=== PATIENT | male | born 1945 | race Caucasian/White ===

== ENCOUNTER 2016-09-08 19:14 | Emergency (ER) | payer MEDICARE ==
[2016-09-08] MEDS ORDERED: DIPHTH,PERTUSS(ACELL),TET VAC 0.5 ML VIAL IM V ONE (20:25)
[2016-09-08] MEDS ORDERED: AMOX 875 MG/CLAV 125 MG 1 EACH TABLET ONE (20:25)
== END 2016-09-08 21:00 | disposition home or self-care (01) ==
LOC: ED 19:14
DX: S61.051A Open bite of right thumb without damage to nail, initial encounter (principal); L08.9 Local infection of the skin and subcutaneous tissue, unspecified; Z23 Encounter for immunization; W55.01XA Bitten by cat, initial encounter; Y92.9 Unspecified place or not applicable
CPT/HCPCS: 90715; 87040; 90471; 99283 ×2; 36415; A9270

== ENCOUNTER 2016-09-10 11:19 | Emergency (ER) | payer MEDICARE | END 2016-09-10 13:19 | disposition home or self-care (01) | LOC: ED 11:19 | DX: S61.451D Open bite of right hand, subsequent encounter (principal); L08.9 Local infection of the skin and subcutaneous tissue, unspecified; E11.9 Type 2 diabetes mellitus without complications; Z79.4 Long term (current) use of insulin; W55.01XD Bitten by cat, subsequent encounter ==

== ENCOUNTER 2016-09-13 10:51 | Inpatient (IN) | payer MEDICARE ==
[2016-09-13 13:23] LABS: ABSOLUTE NEUTROPHIL COUNT 6.6 K/mm3 (1.8-7.7); BASO # 0.1 K/mm3 (0.0-0.2); BASO % 0.9 % (0.2-1.0); EOS # 0.4 (0.0-0.5); EOS % 4.3 % (0.9-2.9); HEMATOCRIT 36.9 % (32.0-52.0); IMM NEUT # 0.1 K/mm3 (0-0.2); IMM NEUT% 1.1 % (0-1); LYMPH % 20.1 % (15-45); MEAN CORPUSCULAR HGB CONC 32.5 g/dl (33.0-37.0); MEAN PLATELET VOLUME 10.4 fl (7.4-10.4); MONO # 0.6 (0.0-0.8); MONO % 5.7 % (4-12); NEUT % 67.9 % (43-75); PLATELET COUNT 273 K/mm3 (130-400); RED CELL DISTRIBUTION WIDTH 13.7 % (11.5-14.5)
[2016-09-13 13:41] LABS: CALCIUM 8.9 mg/dL (8.6-10.3)
[2016-09-13] MEDS ORDERED: CITRIC ACID/SODIUM CITRATE 15 ML UDCUP PO ONE (14:08)
--- NOTE | 2016-09-13 14:23 | RAD ---
HAND-RIGHT 3 VIEWS COMPARISON: None HISTORY: Cat bite at the base of thumb 9 days ago. Infection. FINDINGS: Views: Right hand PA, oblique, lateral Bones: Normal mineralization. Benign radiolucency in the scaphoid and the lunate. No fracture. Joints: Marginal osteophytes and joint narrowing at the first metacarpophalangeal joint and the interphalangeal joints of the thumb and fingers. Marginal and intra-articular erosions. Soft tissues: Swelling of the thenar eminence. IMPRESSION: 1. 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 No definite evidence of septic arthritis or osteomyelitis. There is adjacent soft tissue swelling of the thenar eminence. 2. 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
[2016-09-13] MEDS ORDERED: LIDOCAINE 1% (PRES FREE) 30 ML VIAL ONE (14:26)
--- NOTE | 2016-09-13 14:34 | HP ---
CAROLA LORENZCHADD [id number] DATE OF : 1945 DATE OF SERVICE: 09/13/2016 CHIEF COMPLAINT: Left hand infection. HISTORY OF PRESENT ILLNESS: This 71-year-old diabetic male who sustained a cat bite to his left hand 5 days ago. He was initially seen in the emergency department where the hand was inspected and no formal incision and drainage was performed. He was started on antibiotics. He returns to the emergency department today with complaints of increasing pain, and erythema in the hand. This is about his right thumb. He says the antibiotics have not helped him. He has been changing the dressings on this, but he continues to drain and get more and more painful. He has no previous injury at this site. He denies any fevers, or chills. He has no other extremity complaints. PAST MEDICAL AND SURGICAL HISTORY: Significant for diabetes. Other conditions as listed in the emergency department report. No surgeries on this hand previously. He is right hand dominant. SOCIAL HISTORY: Lives locally. REVIEW OF SYSTEMS: Negative for any constitutional, cardiovascular, or respiratory complaints. PHYSICAL EXAMINATION: GENERAL: Well-developed, well-nourished male in no acute distress. HEENT: Patient is normocephalic, atraumatic. Extraocular movements are intact. NECK: Soft, and supple. LUNGS: Inflating equally and he has nonlabored breathing. CARDIOVASCULAR: He has well perfused extremities, and intact peripheral pulses. ABDOMEN: Soft, nontender, and nondistended. FOCUSED MUSCULOSKELETAL EXAM: He has resting sensation of the shoulders, elbows, and wrists. His right hand shows significant erythema around the thenar space both dorsally, and palmarly. He has a small incision on the back of his thumb that the emergency department doctors performed to try and irrigate and debride this abscess. He has normal motion in all digits without significant exacerbation with flexor and extensor of the digits. His thumb and index finger are both warm and well perfused with intact sensation. Erythema event is up to about the level of the wrist, but the area of fluctuance appears to be primarily in the thenar web space. DIAGNOSTIC IMAGING: X-rays show no fracture, or dislocation. He has some degenerative changes around his thumb carpometacarpal joint. ASSESSMENT: A 71-year-old gentleman with right hand infection that has been recalcitrant to by mouth antibiotic use, and resulted from the cat bite. PLAN: Incision and drainage in the operating room, and then admission to the floor for ongoing IV antibiotics. We will get cultures in the operating room although he has already been on antibiotics and so the yield from this culture is diminished. I will see what we can get. We will get him admitted to the floor, IV antibiotics, elevation, wound change, and then have the Hospitalist consult to manage medical issues and potentially repeat incision and drainage in a couple of days. JOB #: [id number] SAMANTHA/rito
[2016-09-13] MEDS ORDERED: NALOXONE HCL 0.4 MG/ML VIAL IV PRN (14:41)
[2016-09-13] MEDS ORDERED: ONDANSETRON 4 MG/2ML 2 ML VIAL IV PRN ×2 (14:41→15:44)
[2016-09-13] MEDS ORDERED: ATROPINE SULFATE 0.4 MG/1 ML VIAL IV PRN (14:41)
[2016-09-13] MEDS ORDERED: CEFAZOLIN SODIUM 1,000 MG VIAL ONE (14:45)
[2016-09-13] MEDS ORDERED: LACTATED RINGERS 1,000 ML IV SCH (14:45)
[2016-09-13] MEDS: FENTANYL 100 MCG/2 ML VIAL IV PRN ×2 (15:18→15:24)
--- NOTE | 2016-09-13 15:25 | PCMBPN ---
Brief Post Op Note: Date of Procedure: 09/13/16 Start Time: 1400 Preoperative Diagnosis: 1. right hand infection Postoperative Diagnosis: 1. Same Procedure: right hand irrigation and debridement Surgeon: Quan Barahona MD Assist: none Anesthesia: Reinaldo Hunt Findings: as above; gross purulence noted but no joint or flexor tendon involvement Condition: stable to PACU Complications: none IV Fluids: 500 mLs of LR Urine Output: 0 mLs Estimated Blood Loss: 10 mLs Tourniquet Time: 35 min at 250 mm Hg Specimens: culture swab from R hand wound Implants: none Drains: 1/2 daly through and through in hand, packed in thenar incision Quan Barahona MD
[2016-09-13] MEDS ORDERED: HYDROMORPHONE HCL 2 MG/ML SYRINGE IV PRN (15:44)
[2016-09-13] MEDS ORDERED: MENTHOL/CETYLPYRD 1 EACH LOZENGE PO PRN (15:44)
[2016-09-13] MEDS ORDERED: BLISTEX LIPSTICK 1 EACH TP PRN (15:44)
[2016-09-13] MEDS ORDERED: TRAZODONE HCL 50 MG TABLET PO PRN (15:44)
[2016-09-13] MEDS ORDERED: ACETAMINOPHEN 325 MG TABLET PO PRN (15:44)
[2016-09-13] MEDS ORDERED: HYDROMORPHONE HCL 1 MG/ML SYRINGE IV PRN (15:51)
[2016-09-13] MEDS ORDERED: ASPIRIN (UNCOATED) 325 MG TABLET PO PRN (16:43)
[2016-09-13] MEDS ORDERED: INSULIN ASPART (DOSE) 100 UNITS/1 ML SUB-Q PRN ×2 (16:44→17:12)
[2016-09-13] MEDS ORDERED: INSULIN ASPART (DOSE) 100 UNITS/1 ML SUB-Q SCH (17:00)
[2016-09-13] MEDS: OXYCODONE/ACETAMINOPHEN 5/325 MG TABLET PO PRN ×2 (17:34→22:09)
[2016-09-13] MEDS: INSULIN ASPART (DOSE) 100 UNITS/1 ML SUB-Q SCH (17:35)
[2016-09-13] MEDS: INSULIN GLARGINE (DOSE) 100 UNITS/ML UNIT SUB-Q SCH (17:36)
[2016-09-13 17:44] VITALS: BMI 42.6
[2016-09-13] MEDS ORDERED: PIPERACILLIN-TAZO PREMIX BAG 3.375 G in Premix (D5W) 50 ml 1 EACH IV SCH (18:00)
[2016-09-13] MEDS ORDERED: PUMP TUBING ONE (18:32)
[2016-09-13] MEDS ORDERED: SODIUM CHLORIDE 0.9% 100 ML IV ONE (18:32)
[2016-09-13] MEDS: CEFUROXIME SODIUM IV SCH (18:35)
[2016-09-13] MEDS: SODIUM CHLORIDE 0.9% IV SCH (18:35)
[2016-09-13] MEDS ORDERED: INSULIN DETEMIR 25 UNIT SQ SCH (21:00)
[2016-09-13] MEDS: DOCUSATE SODIUM 100 MG CAPSULE PO SCH (22:10)
[2016-09-14] MEDS: OXYCODONE/ACETAMINOPHEN 5/325 MG TABLET PO PRN ×7 (01:24→22:50)
[2016-09-14] MEDS: CEFUROXIME SODIUM IV SCH ×2 (05:56→20:31)
[2016-09-14] MEDS: SODIUM CHLORIDE 0.9% IV SCH ×2 (05:56→20:31)
[2016-09-14 06:32] LABS: ALBUMIN 3.2 gm/dL (3.5-5.7); CALCIUM 8.5 mg/dL (8.6-10.3)
[2016-09-14 06:35] LABS: C-REACTIVE PROTEIN 4.1 mg/dl (<1.0)
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
--- NOTE | 2016-09-14 07:58 | PDOC43 ---
- Subjective Chief Complaint: Right hand cat bite infection In good spirits. Pain control is better when he takes two Percocet (had been taking only one at home). Denies other c/o. - Objective Vital Signs Temperature 98.0 F 09/14/16 07:19 Pulse Rate 98 09/14/16 07:19 Respiratory Rate 16 09/14/16 07:37 Blood Pressure 126/76 09/14/16 07:19 O2 Saturation by Pulse Oximetry 98 09/14/16 07:19 Oxygen Delivery Method Room Air Oxygen Flow Rate 0 Intake and Output 09/13/16 09/14/16 09/15/16 06:59 06:59 06:59 Intake Total 600 Output Total 1475 Balance -875 General: Alert, Oriented x3, Cooperative, No Acute Distress HEENT: Mucous membr. moist/pink Lungs: Clear to Auscultation Bilaterally Cardiovascular: Regular Rate and Rhythm Abdomen: Soft, Normal Bowel Sounds, No Tenderness, No Masses Extremities: Pulses Diminished but Palpable, No Edema Skin: Normal Color Wound: Dressing Clean/Dry/Intact, Other (right arm elevated in stocking) Neurological: Normal Speech Psych/Mental Status: Normal Mood Laboratory 09/13/16 13:05 09/14/16 05:30 09/14/16 09/13/16 09/13/16 05:30 22:11 17:15 RBC MCHC ESR 65 H Estimated GFR 83 H POC Capillary Glucose 143 H 177 H Calcium 8.5 L C-Reactive Protein 4.1 H Total Protein 6.3 L Albumin 3.2 L % Immature Granulocyt 09/13/16 13:05 RBC 4.29 L MCHC 32.5 L ESR Estimated GFR POC Capillary Glucose Calcium C-Reactive Protein Total Protein Albumin % Immature Granulocyt 1.1 H Current Medications: Current meds reviewed in EMR. - Problems: Assessment/Plan (1) Cellulitis and abscess of hand Status: AcuteAssessment/Plan: Presumed bacterial infection due to cat bite on 09/04. Treated with oral Augmentin 09/08-08/[address] Barahona on 09/13 Cefuroxime IV treatment started 09/13. Continue current tx and await intra-operative culture results. Dr. Barahona will assess for further surgery. (2) Diabetes type 2, controlled Qualifiers: Diabetes mellitus complication status: with neurologic complications Diabetes mellitus complication detail: with polyneuropathy Diabetes mellitus prison insulin use: with long term care phlebotomist use Qualifier Code: (E11.42) Type 2 diabetes mellitus with diabetic polyneuropathy Status: Chronic Assessment/Plan: BG well controlled (3) HTN (hypertension), benign Status: SuspectedAssessment/Plan: BP okay, no medication necessary. (4) Hyponatremia Status: AcuteAssessment/Plan: resolved (5) Morbid obesity with BMI of 40.0-44.9, adult Status: ChronicAssessment/Plan: Complicates diabetes and may make wound healing more difficult. VTE Prophylaxis: mechanical
[2016-09-14] MEDS: ASPIRIN (ENTERIC COATED) 325 MG TABLET.EC PO SCH (08:45)
[2016-09-14] MEDS: L.ACIDOPH,SAL/B.BIF/S.THER 175 MG 1 CAP PO SCH (08:45)
[2016-09-14] MEDS: MULTIVITAMINS 1 TAB TABLET PO SCH (08:45)
[2016-09-14] MEDS: DOCUSATE SODIUM 100 MG CAPSULE PO SCH ×2 (08:46→22:50)
[2016-09-14] MEDS: INSULIN ASPART (DOSE) 100 UNITS/1 ML SUB-Q SCH ×3 (08:51→18:27)
[2016-09-14] MEDS ORDERED: MULTIVITAMINS 1 TAB TABLET PO SCH (09:00)
[2016-09-14] MEDS ORDERED: L.ACIDOPH,SAL/B.BIF/S.THER 175 MG 1 CAP PO SCH (09:00)
[2016-09-14] MEDS: INSULIN GLARGINE (DOSE) 100 UNITS/ML UNIT SUB-Q SCH (18:26)
[2016-09-14] MEDS: CEFUROXIME SODIUM 1.5 GRAM 50 ML IV SCH (19:47)
[2016-09-15] MEDS: OXYCODONE/ACETAMINOPHEN 5/325 MG TABLET PO PRN (06:36)
[2016-09-15] MEDS: CEFUROXIME SODIUM 1.5 GRAM 50 ML IV SCH ×3 (06:36→17:41)
--- NOTE | 2016-09-15 08:14 | PDOC43 ---
- Subjective Findings: Patient doing well, swelling decreased, pain improved. No new issues. Subjective: Reports Pain Tolerable, Denies Chest Pain, Denies Shortness of Breath, Denies Nausea, Denies Vomiting, Denies Fever - Objective Vital Signs Temperature 97.6 F 09/15/16 01:50 Pulse Rate 81 09/15/16 01:50 Respiratory Rate 20 09/15/16 02:00 Blood Pressure 125/77 09/15/16 01:50 O2 Saturation by Pulse Oximetry 95 09/15/16 01:50 Oxygen Delivery Method Room Air Oxygen Flow Rate 0 Laboratory 09/14/16 05:30 09/15/16 09/14/16 09/14/16 06:35 22:53 18:10 POC Capillary Glucose 121 H 104 H 102 H 09/14/16 12:16 POC Capillary Glucose 173 H Active Medication Orders Category Date Time Status Aspirin (Enteric Coated) [Ecotrin] Med 09/14/16 09:00 Active 325 mg PO DAILY Cefuroxime Sodium 1.5 Gram [Zinacef] 50 ml Med 09/14/16 18:30 Active IV Q12H Hydromorphone HCl [Dilaudid] Med 09/13/16 15:51 Active 1 - 2 mg IV Q4H PRN Insulin Aspart (Dose) [Novolog (Dose)] Med 09/14/16 09:00 Active 5 units SUB-Q TIDWM Insulin Aspart (Dose) [Novolog (Dose)] Med 09/13/16 17:12 Active See Protocol SUB-Q WM/BEDTIME PRN Insulin Glargine (Dose) [Lantus (Dose)] Med 09/13/16 17:15 Active 25 units SUB-Q Q24H L.acidoph,Rickie/B.bif/S.ther 175 [Probiotic Blend 175 mg Med 09/14/16 09:00 Active Cap] 1 cap PO DAILY Multivitamins [One-A-Day] Med 09/14/16 09:00 Active 1 tab PO DAILY Sodium Chloride 0.9% Flush [Normal Saline 10ml Flush] Med 09/14/16 09:00 Active 10 ml IV Q8HR Intake and Output 09/13/16 09/14/16 09/15/16 23:59 23:59 23:59 Intake Total 1800 1160 Output Total 2815 850 Balance -1015 310 General: Afebrile, No Acute Distress Lungs: Normal Air Movement Abdomen: Firm, Tenderness, Distention (patient reports feeling quite constipated ) Skin: Normal Color, Warm, Dry Neurological: Grossly Intact, Alert, Oriented x 4, Normal Speech Psych/Mental Status: Normal Affect, Normal Mood - Right Upper Extremity Incision: Drainage (moderate bloody drainage, no purulence), Well Approximated, No Erythema (much decreased erythema and swelling) Motor: Extensor Pollicis Longus: 5/5, Finger Flexors: 5/5, Finger Extensors: 5/5 , Wrist Flexors: 5/5, Wrist Extensors: 5/5 Gross Sensation to Light Touch: Present: Median Nerve, Ulnar Nerve, Radial Nerve , Axillary Nerve Capillary Refill: < 3 Seconds - Problems (1) Cellulitis and abscess of hand Status: Acute - Disposition POD#2 R hand I&D for abscess 1. Physical Therapy: out of splint this AM, motion as tolerated, does not need to be up in sling but do not let arm hang in dependent position 2. Pain Control: Tylenol/Percocet/Dilaudid (adequate) 3. DVT Prophylaxis: mechanical and ambulation 4. Disposition: Likely home tomorrow or if exam continues to improve 5. Medical Issues: antibiotic coverage for Pasteurella per Hospitalist, will start betadine soaks today Quan Barahona MD
[2016-09-15] MEDS ORDERED: MAGNESIUM HYDROXIDE 30 ML UDCUP PO PRN ×2 (08:51→14:18)
[2016-09-15] MEDS: MULTIVITAMINS 1 TAB TABLET PO SCH (09:19)
[2016-09-15] MEDS: ASPIRIN (ENTERIC COATED) 325 MG TABLET.EC PO SCH (09:19)
[2016-09-15] MEDS: INSULIN ASPART (DOSE) 100 UNITS/1 ML SUB-Q SCH ×2 (09:19→12:43)
[2016-09-15] MEDS: DOCUSATE SODIUM 100 MG CAPSULE PO SCH ×2 (09:19→20:48)
[2016-09-15] MEDS: L.ACIDOPH,SAL/B.BIF/S.THER 175 MG 1 CAP PO SCH (09:19)
[2016-09-15] MEDS ORDERED: SODIUM CHLORIDE 500 IRRIG BOT 500 ML IR ONE (13:38)
[2016-09-15] MEDS ORDERED: SODIUM CHLORIDE 3 L IRRIG BAG 3,000 ML IR ONE (13:48)
--- NOTE | 2016-09-15 14:13 | PDOC43 ---
- Subjective Chief Complaint: Right hand cat bite infection Patient reports swelling and discomfort improved, feeling better overall. No respiratory c/o. No new c/o. RN had soaked hand in betadine, and was now rewrapping it. - Objective Vital Signs Temperature 98.0 F 09/15/16 07:00 Pulse Rate 84 09/15/16 07:00 Respiratory Rate 20 09/15/16 08:00 Blood Pressure 146/78 09/15/16 07:00 O2 Saturation by Pulse Oximetry 98 09/15/16 07:00 Oxygen Delivery Method Room Air Oxygen Flow Rate 0 Vital Signs Last 12 Hours Temp Pulse Resp BP Pulse Ox 09/15/16 08:00 20 09/15/16 07:00 98.0 F 84 20 146/78 98 09/15/16 02:00 20 Intake and Output 09/13/16 09/14/16 09/15/16 23:59 23:59 23:59 Intake Total 1800 1160 Output Total 2815 850 Balance -1015 310 General: Alert, Cooperative, No Acute Distress HEENT: Atraumatic Lungs: Clear to Auscultation Bilaterally Cardiovascular: Regular Rate and Rhythm Abdomen: Soft, Normal Bowel Sounds, Non-Distended Extremities: Other (R hand with surgical drainage on ventral and palmar aspect of R hand on thenar aspect. Mild-mod puffiness noted. Wounds reported to only have small amount of drainage (quarter sized) on dressing. Forearm and wrist appear to be doing well.) Skin: Normal Color Wound: Other (as above.) Neurological: Normal Speech Laboratory 09/14/16 05:30 09/15/16 09/14/16 09/14/16 06:35 22:53 18:10 POC Capillary Glucose 121 H 104 H 102 H Current Medications: Current meds reviewed in EMR. - Problems: Assessment/Plan (1) Cellulitis and abscess of hand Status: AcuteAssessment/Plan: Pasteurella multocida due to cat bite on 09/04; second culture still pending. sensitive to cephalosporins. Treated with oral Augmentin 09/08-08/[address] Barahona on 09/13 Cefuroxime IV treatment started 09/13, could consider revision back to Augmentin or other; will review with Dr Barahona. Appreciate Dr. Barahona input regarding further debridement/drainage. (2) Diabetes type 2, controlled Qualifiers: Diabetes mellitus complication status: with neurologic complications Diabetes mellitus complication detail: with polyneuropathy Diabetes mellitus fpc insulin use: with extermination inspector use Qualifier Code: (E11.42) Type 2 diabetes mellitus with diabetic polyneuropathy Status: Chronic Assessment/Plan: BG well controlled VTE Prophylaxis: mechanical Disposition: Anticipate being able to return home on PO abx, poss in 1-2 days; depending on surgical needs.
[2016-09-15] MEDS ORDERED: SENNOSIDES 8.6 MG TABLET PO PRN (14:17)
[2016-09-15] MEDS ORDERED: POLYETHYLENE GLYCOL 3350 17 G POWD.SUSP PO PRN (14:17)
[2016-09-15] MEDS: BISACODYL 5 MG TABLET.EC PO PRN (15:28)
[2016-09-15] MEDS ORDERED: PUMP TUBING ONE (17:06)
[2016-09-15] MEDS ORDERED: SODIUM CHLORIDE 0.9% 100 ML IV ONE (17:06)
[2016-09-15] MEDS: INSULIN GLARGINE (DOSE) 100 UNITS/ML UNIT SUB-Q SCH (17:16)
[2016-09-16] MEDS: OXYCODONE/ACETAMINOPHEN 5/325 MG TABLET PO PRN (01:51)
[2016-09-16] MEDS: CEFUROXIME SODIUM 1.5 GRAM 50 ML IV SCH (06:18)
[2016-09-16 07:13] VITALS: BP 131/76
[2016-09-16] MEDS: DOCUSATE SODIUM 100 MG CAPSULE PO SCH (08:07)
[2016-09-16] MEDS: L.ACIDOPH,SAL/B.BIF/S.THER 175 MG 1 CAP PO SCH (08:07)
[2016-09-16] MEDS: ASPIRIN (ENTERIC COATED) 325 MG TABLET.EC PO SCH (08:07)
[2016-09-16] MEDS: MULTIVITAMINS 1 TAB TABLET PO SCH (08:07)
--- NOTE | 2016-09-16 08:09 | PDOC43 ---
- Subjective Findings: POD3 Right hand I&D for hand infection. Subjective: Reports Pain Tolerable - Objective Vital Signs Temperature 97.6 F 09/16/16 07:00 Pulse Rate 81 09/16/16 07:00 Respiratory Rate 17 09/16/16 07:00 Blood Pressure 131/76 09/16/16 07:00 O2 Saturation by Pulse Oximetry 99 09/16/16 07:00 Oxygen Delivery Method Room Air Oxygen Flow Rate 0 Laboratory 09/14/16 05:30 09/15/16 09/15/16 20:47 17:19 POC Capillary Glucose 185 H 124 H Active Medication Orders Category Date Time Status Aspirin (Enteric Coated) [Ecotrin] Med 09/14/16 09:00 Active 325 mg PO DAILY Bisacodyl [Dulcolax] Med 09/15/16 08:51 Active 10 mg PO DAILY PRN Cefuroxime Sodium 1.5 Gram [Zinacef] 50 ml Med 09/14/16 18:30 Active IV Q12H Hydromorphone HCl [Dilaudid] Med 09/13/16 15:51 Active 1 - 2 mg IV Q4H PRN Insulin Aspart (Dose) [Novolog (Dose)] Med 09/14/16 09:00 Hold 5 units SUB-Q TIDWM Insulin Aspart (Dose) [Novolog (Dose)] Med 09/13/16 17:12 Active See Protocol SUB-Q WM/BEDTIME PRN Insulin Glargine (Dose) [Lantus (Dose)] Med 09/13/16 17:15 Active 25 units SUB-Q Q24H L.acidoph,Rickie/B.bif/S.ther 175 [Probiotic Blend 175 mg Med 09/14/16 09:00 Active Cap] 1 cap PO DAILY Magnesium Hydroxide [Milk of Magnesia] Med 09/15/16 14:18 Active 30 ml PO BID PRN Multivitamins [One-A-Day] Med 09/14/16 09:00 Active 1 tab PO DAILY Polyethylene Glycol 3350 [Miralax] Med 09/15/16 14:17 Active 17 g PO BEDTIME PRN Sennosides [Senokot] Med 09/15/16 14:17 Active 8.6 mg PO BEDTIME PRN Sodium Chloride 0.9% Flush [Normal Saline 10ml Flush] Med 09/14/16 09:00 Active 10 ml IV Q8HR Intake and Output 09/14/16 09/15/16 09/16/16 23:59 23:59 23:59 Intake Total 1800 5285 1300 Output Total 0380 7646 7597 Balance -4807 -506 -7937 General: Afebrile Lungs: Normal Air Movement Skin: Normal Color, Warm - Right Upper Extremity Incision: Dressing Clean/Dry/Intact (Moderate hand swelling, sensation intact, well perfused, some serosanguineousdrainage present, active hand motion intact.) - Problems (1) Cellulitis and abscess of hand Status: Acute - Disposition POD#3 R hand I&D for abscess 1. Physical Therapy: out of splint this AM, motion as tolerated, does not need to be up in sling but do not let arm hang in dependent position 2. Pain Control: Tylenol/Percocet/Dilaudid (adequate) 3. DVT Prophylaxis: mechanical and ambulation 4. Disposition: Plan for home today, daily soaks of hand and daily dressing changes, STEPS referral. 5. Medical Issues: antibiotic coverage for Pasteurella per Hospitalist, continue betadine soaks daily and dressing changes, referral to [facility]. Quan Barahona MD
[2016-09-16] MEDS: BISACODYL 5 MG TABLET.EC PO PRN (08:16)
--- NOTE | 2016-09-16 11:41 | PDOC43 ---
- Subjective Chief Complaint: Right hand cat bite infection, with abscess, Pasteurella multocida cultured Patient reports feeling pretty good. Pain controlled. No resp c/o. Only GI c/o is some constipation. No new c/o. Eager to go home. - Objective Vital Signs Temperature 97.6 F 09/16/16 07:00 Pulse Rate 81 09/16/16 07:00 Respiratory Rate 17 09/16/16 07:00 Blood Pressure 131/76 09/16/16 07:00 O2 Saturation by Pulse Oximetry 99 09/16/16 07:00 Oxygen Delivery Method Room Air Oxygen Flow Rate 0 Vital Signs Last 12 Hours Temp Pulse Resp BP Pulse Ox 09/16/16 07:00 97.6 F 81 17 131/76 99 09/16/16 01:35 98.3 F 86 20 126/83 94 09/16/16 01:00 20 Intake and Output 09/14/16 09/15/16 09/16/16 23:59 23:59 23:59 Intake Total 1800 2435 1300 Output Total 2815 3275 3100 Balance -1015 -840 -1800 General: Alert, Cooperative, No Acute Distress HEENT: Atraumatic Lungs: Clear to Auscultation Bilaterally Cardiovascular: Regular Rate and Rhythm Abdomen: Soft, Normal Bowel Sounds, Non-Distended Extremities: Other (R hand dressed. Fingers appear improved with less swelling. Good perfusion suggested. Some atrophy bilat, pt attributes to neuropathy), No Edema Neurological: Normal Speech Psych/Mental Status: Normal Mood Laboratory 09/14/16 05:30 09/16/16 09/15/16 09/15/16 08:13 20:47 17:19 POC Capillary Glucose 122 H 185 H 124 H Current Medications: Current meds reviewed in EMR. Active Medications Acetaminophen (Tylenol) 325 - 650 mg PO Q4H PRN PRN Reason: Mild Pain/Temperature >100.5 F Aspirin (Ecotrin) 325 mg PO DAILY FORMERLY [facility], [facility]1983 Last Admin: 09/16/16 08:07 Dose: 325 mg Benzocaine/Menthol (Cepacol) 1 each PO PRN PRN PRN Reason: Sore Throat Bisacodyl (Dulcolax) 10 mg PO DAILY PRN PRN Reason: constipation Last Admin: 09/16/16 08:16 Dose: 10 mg Docusate Sodium (Colace) 100 mg PO BID FOR[facility]LY [facility], [facility]1983 Last Admin: 09/16/16 08:07 Dose: 100 mg Hydromorphone HCl (Dilaudid) 1 - 2 mg IV Q4H PRN PRN Reason: Pain (Breakthrough) Hydromorphone HCl (Dilaudid) 1 - 2 mg IV Q4H PRN PRN Reason: Pain (Breakthrough) Cefuroxime Sodium (Zinacef) 50 mls @ 150 mls/hr IV Q12H FOR[facility]LY [facility], [facility]1983 Last Admin: 09/16/16 06:18 Dose: 150 mls/hr Insulin Aspart (Novolog (Dose)) 0 units SUB-Q WM/BEDTIME PRN; Protocol PRN Reason: Blood Sugar > Last Admin: 09/14/16 12:52 Dose: 3 units Insulin Aspart (Novolog (Dose)) 5 units SUB-Q TIDWM FOR[facility], [facility]1983 Last Admin: 09/15/16 12:43 Dose: Not Given Insulin Glargine (Lantus (Dose)) 25 units SUB-Q Q24H FOR[facility], [facility] Last Admin: 09/15/16 17:16 Dose: 25 units Magnesium Hydroxide (Milk Of Magnesia) 30 ml PO BID PRN PRN Reason: Constipation Last Admin: 09/15/16 20:52 Dose: 30 ml Multivitamins (One-A-Day) 1 tab PO DAILY FOR[facility] Last Admin: 09/16/16 08:07 Dose: 1 tab Ondansetron HCl (Zofran) 4 mg IV Q6H PRN PRN Reason: Nausea/Vomiting Oxycodone/Acetaminophen (Percocet 5/325) 1 - 2 tab PO Q4H PRN PRN Reason: Pain (Moderate) Last Admin: 09/16/16 01:51 Dose: 1 tab Petrolatum/Paraffin/Mineral Oil (Blistex) 1 each TP PRN PRN PRN Reason: Dry and/or chapped lips Polyethylene Glycol/Electrolytes (Miralax) 17 g PO BEDTIME PRN PRN Reason: Constipation Last Admin: 09/15/16 20:48 Dose: 17 g Senna (Senokot) 8.6 mg PO BEDTIME PRN PRN Reason: Constipation Last Admin: 09/15/16 20:52 Dose: 8.6 mg Sodium Chloride (Normal Saline 10ml Flush) 10 - 50 ml IV PRN PRN PRN Reason: IV flush Last Admin: 09/16/16 06:18 Dose: 20 ml Sodium Chloride (Normal Saline 10ml Flush) 10 ml IV Q8HR RADHA Last Admin: 09/16/16 08:07 Dose: 10 ml Trazodone HCl (Desyrel) 25 mg PO BEDTIME PRN PRN Reason: Insomnia - Problems: Assessment/Plan (1) Cellulitis and abscess of hand Status: AcuteAssessment/Plan: Pasteurella multocida due to ('s indoor) cat bite on 09/04; second culture still pending. sensitive to cephalosporins, Augmentin. Treated with oral Augmentin 09/08-08/[address] Barahona on 09/13 Cefuroxime IV treatment started 09/13, anticipate revision back to Augmentin now that abscess drained. Appreciate Dr. Barahona input regarding further debridement/drainage. 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 VTE Prophylaxis: mechanical Disposition: Anticipate being able to return home on PO abx, likely today if continues to do well.
[2016-09-16] MEDS ORDERED: SODIUM CHLORIDE 3 L IRRIG BAG 3,000 ML IR ONE (12:53)
--- NOTE | 2016-09-16 12:57 | DS ---
Diaz Osei . [id number] DATE OF ADMISSION: 09/13/2016 DATE OF DISCHARGE: 09/16/2016 DISCHARGE DIAGNOSES: 1. Right hand abscess in thenar aspect from cat bite with pasteurella multocida cultured from drainage. 2. Diabetes mellitus type 2 with generally good control. 3. Body mass index of 42.6. 4. Elevated blood pressure without current diagnosis of hypertension. 5. Osteoarthritis. 6. Polyneuropathy attributed to diabetes. REASON FOR ADMISSION: The patient is a 71-year-old male who was bitten by his 's indoor cat on the right hand 09/04/2016. He had increasing swelling and edema. Was seen September 08 and started on Augmentin. He noted that the Augmentin as somewhat helpful, but the erythema seemed to persist. He tried increasing the dose, but on follow up September 10 it was felt that the infection was not resolving. He was taken to the operating room for incision and drainage and washout of the wound. Hospitalist service was consulted for medical care and antibiotic treatment. Patient's admission labs showed a white blood cell count of 9.7, hemoglobin 12.0, platelets. Sed rate 65. Sodium 131, potassium 4.3, creatinine 1.1, glucose 214. C-reactive protein 4.1. 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 Patient underwent right hand irrigation and debridement on September [address] Barahona showing gross purulence, but no joint or flexor tendon involvement. Patient was treated with cefuroxime and had a good response. His temperature remained afebrile. Vital signs did show some elevated blood pressures initially, but most systolic blood pressures were under 140 in the latter half of his hospitalization. He had Betadine soaks and his hand showed good improvement in swelling and pain control. Cultures showed pasteurella multocida with sensitivity to all antibiotics tested although, intermediate to ceftazidime. The case was discussed with Dr. Barahona and he is anticipated to be continued on Augmentin as an outpatient. He will be following up with Chaparro Zambrano, physician visitor use assistant on 09/21/2016 at 3:00 p.m. and will also be seeing [facility] for his treatment of his hand. DISCHARGE MEDICATIONS: He will have discharge medications with resumption of his previous medications bein. Aspirin 350 mg as needed. 2. Flex Pen with meals. 3. Levemir 25 units at bedtime. 4. Multivitamin one by mouth daily. 5. Percocet 5/325 one half to one every 4 hours as needed. 6. Probiotic one by mouth daily. 7. He takes Augmentin 875/125 one by mouth twice daily which demonstrated susceptibility invitro. FOLLOW UP: He is to follow up if having worsening or other problems. JOB: [id number] CC: Dr. Quan Zambrano, PA [facility] Dr. Darwin Cao
--- NOTE | 2016-09-17 12:44 | OP ---
Diaz SRIVASTAVA JR : 1945 [id number] DATE OF SERVICE: September 13, 2016 PREOPERATIVE DIAGNOSIS: Right hand infection. POSTOPERATIVE DIAGNOSIS: Right hand infection. PROCEDURE PERFORMED: RIGHT HAND IRRIGATION AND DEBRIDEMENT. SURGEON: Quan Barahona M.D. FUR POINTER: None. ANESTHESIA: Reinaldo Hunt C.R.N.A. MATERIAL SENT TO THE LABORATORY: Culture swab from the right hand. ESTIMATED BLOOD LOSS: 10 mL. FLUIDS REPLACED: 500 mL of crystalloid. TOURNIQUET TIME: 35 minutes at 250 mmHg. URINE OUTPUT: None. IMPLANTS: None. DRAINS: 0.5 inch Emilie through and through in the thenar webspace and a portion of Emilie packed into the dorsal thenar MCP incision. INDICATIONS: This is a 71-year-old diabetic male who had a cat bite on his left hand five days prior to presentation. He was seen at that time in the emergency department where he was started on oral antibiotics. He returned on the day of surgery with complaints of increasing pain and erythema about the area of his right thumb. He has continued drainage and complains of significant pain that is limiting his activities at this point. His exam is consistent with an abscess in the thenar webspace that has not been adequately drained and his imaging shows no fractures or dislocations. Given these findings, the patient was taken to the operating room for irrigation and debridement and then admitted postoperatively for medical management. DESCRIPTION OF PROCEDURE: The patient was identified in the pre-operative holding area where he was marked with an indelible marker by the operating surgeon. He was taken to the operating room where he was placed in the supine position on the operating room table. Monitored anesthesia care was administered and a regional block was placed by the anesthesia providers. The patient was prepped and draped in the usual sterile fashion after placement of a nonsterile tourniquet on his right upper arm. He received perioperative antibiotics and a final operative time out was performed and confirmed by all members of the operative team. The patient's arm was elevated and exsanguinated and the tourniquet was inflated. An operative incision was made over the dorsum of the patient's hand in the first webspace and then a counter incision on the volar surface of the hand. Purulent material was identified and swabbed for culture. Blunt dissection was used to expose the thenar webspace and ensured that we had emptied any significant abscess at this level. Wounds were copiously irrigated and then a 0.5 inch [place] was passed through the hand. The previously made stellate incision over the dorsum of the hand that the emergency room doctors had made was sterilely irritated and explored and again a small amount of purulence was obtained at this level. There was no involvement of metacarpophalangeal joint or of the extensor tendon. A wick of 0.5 inch [place] was placed into this incision as well. At this point we placed Xeroform, fluffs, web roll and an CHRISTIN bandage and we put a thumb spica splint for soft tissue rest and held this in place with an CHRISTIN bandage. The tourniquet was deflated, the drapes were removed. The patient was transferred from [facility] and taken postoperatively to the postanesthesia care unit in stable condition. There were no observed intraoperative complications during this procedure. Job [id number] cc: [facility]
== END 2016-09-16 13:30 | disposition home or self-care (01) | DRG 605 ==
LOC: ED 10:51 → MS 15:44 → ED 09-14 08:37
PROVIDERS: ADMIT Orthopaedic Surgery; ATTEND Orthopaedic Surgery
PROC: 0H9FXZZ Drainage of Right Hand Skin, External Approach (ICD-10-PCS; principal; 2016-09-13)
DX: S61.452A Open bite of left hand, initial encounter (principal); A28.0 Pasteurellosis; Z68.41 Body mass index [BMI] 40.0-44.9, adult; W55.01XA Bitten by cat, initial encounter; Y93.9 Activity, unspecified; M19.041 Primary osteoarthritis, right hand; E11.42 Type 2 diabetes mellitus with diabetic polyneuropathy; E66.01 Morbid (severe) obesity due to excess calories; Z79.4 Long term (current) use of insulin; Z87.891 Personal history of nicotine dependence